=== PATIENT | female | born 1995 | race Caucasian/White ===

== ENCOUNTER 2023-07-01 07:05 | Inpatient (IN) ==
[2023-07-01] MEDS ORDERED: OXYTOCIN 30 UNITS/500 ML BAG IV PRN ×3 (07:25→12:30)
[2023-07-01] MEDS ORDERED: LACTATED RINGER'S 1,000 ML IV PRN (07:25)
[2023-07-01] MEDS ORDERED: LIDOCAINE 1% LOCAL 20 ML VIAL INFIL PRN (07:25)
[2023-07-01] MEDS ORDERED: SODIUM CHLORIDE 0.9% PF INJ 10 ML VIAL ONE (07:32)
[2023-07-01] MEDS ORDERED: ePHEDrine sulfate 50 MG/ML AMP ONE (07:32)
[2023-07-01] MEDS ORDERED: BUPIVACAINE 0.25% PF 30 ML VIAL ONE (07:32)
[2023-07-01] MEDS ORDERED: fentaNYL citrate PF 100 MCG/2 ML VIAL ONE (07:32)
[2023-07-01] MEDS ORDERED: LIDOCAINE 2%/EPINEPHRINE 1:200,000 20 ML PF ONE (07:33)
[2023-07-01] MEDS ORDERED: fentaNYL 2MCG/ML ROPIVACAINE 1.25MG/ML 100 ML BAG EPI ONE (07:33)
[2023-07-01] MEDS ORDERED: LIDOCAINE 2% MPF LOCAL 5 ML VIAL EPI PRN (07:44)
[2023-07-01] MEDS ORDERED: NALBUPHINE HCL INJ 10 MG/ML AMP IV PRN (07:44)
[2023-07-01] MEDS ORDERED: NALOXONE HCL 1 MG in SODIUM CHLORIDE 0.9% 1000ML 1,000 ML IV PRN (07:44)
[2023-07-01] MEDS ORDERED: ePHEDrine sulfate 50 MG/ML AMP IV PRN (07:44)
[2023-07-01] MEDS ORDERED: LIDOCAINE 2%/EPINEPHRINE 1:200,000 20 ML PF EPI STA (07:44)
[2023-07-01] MEDS ORDERED: BUPIVACAINE 0.25% PF 30 ML VIAL EPI PRN (07:44)
[2023-07-01] MEDS ORDERED: fentaNYL 2MCG/ML ROPIVACAINE 1.25MG/ML 100 ML BAG EPI PRN (07:44)
[2023-07-01] MEDS ORDERED: SODIUM CHLORIDE 0.9% PF INJ 10 ML VIAL EPI PRN (07:44)
[2023-07-01] MEDS ORDERED: BUPIVACAINE 0.25% PF 30 ML VIAL EPI STA (07:44)
[2023-07-01] MEDS ORDERED: fentaNYL citrate PF 100 MCG/2 ML VIAL EPI PRN (07:44)
[2023-07-01] MEDS ORDERED: ROPIVACAINE 0.5% PF 5 MG/ML 20 ML VIAL EPI PRN (07:44)
[2023-07-01] MEDS ORDERED: fentaNYL citrate PF 100 MCG/2 ML VIAL EPI STA (07:44)
[2023-07-01] MEDS ORDERED: diphenhydrAMINE 50 MG/ML VIAL IV PRN (07:44)
[2023-07-01] MEDS ORDERED: SODIUM CHLORIDE 0.9% PF INJ 10 ML VIAL EPI STA (07:44)
[2023-07-01] MEDS ORDERED: NALOXONE HCL 0.4 MG/1 ML VIAL/CARP IV PRN (07:44)
--- NOTE | 2023-07-01 07:45 | Anesthesiology Consultation ---
Date of Service July 01, 2023 Assessment & Plan (1) Encounter for pre-operative examination: Chart Review Chart Review: Patient NOT seen in Pre Admission Testing and Acceptable Risk for Labor Epidural Consults Requested none History Allergies Allergy/AdvReac Type Severity Reaction Status Date / Time No Known Allergies Allergy Verified 06/29/23 10:32 Medications Home Medications Medication Instructions Recorded Confirmed Last Taken prenat.vits,barrett,xeb-[id number] 1 tab PO DAILY 11/09/22 06/29/23 Unknown albuterol sulfate 90 mcg/actuation 2 puff inhalation Q6H PRN 12/05/22 06/29/23 Unknown aerosol inhaler shortness of breath or wheezing #8.5 grams Past Medical History Medical History (Updated 07/01/23 @ 07:45 by Quinn Simms MD) Encounter for pre-operative examination healthy Past Family History Family History Mother Hypertension Aunt Ovarian cancer Uncle Colorectal cancer Past Surgical History Surgical History H/O wisdom tooth extraction S/P tonsillectomy and adenoidectomy Social History Smoking Status: Never smoker Do You Dip or Chew Tobacco: No Physical Exam Vital Signs Last Vital Signs Temp 36.4 C L 07/01/23 07:11 Pulse 88 07/01/23 08:12 Resp 22 07/01/23 07:11 BP 135/81 07/01/23 08:14 Pulse Ox 99 07/01/23 08:11 Testing Laboratory Results 07/01/23 07:32
[2023-07-01 08:02] LABS: Hematocrit (blood only) 40.8 % (37.0-47.0); Hemoglobin 14.5 g/dl (12.0-16.0); Mean Corpuscular Hemoglobin 32.4 pg (25.0-34.0); Mean Corpuscular Hgb Conc 35.5 g/dL (32.0-36.0); Mean Corpuscular Volume 91.1 fL (80.0-100.0); Mean Platelet Volume 9.3 fL (9.4-12.4); Platelet Count 267 K/uL (130-400); RDW Coefficient of Variation 12.2 % (11.5-14.5); RDW Standard Deviation 40.3 fL (36.4-46.3); Red Blood Count 4.48 M/uL (4.20-5.40); White Blood Count 16.61 K/ul (4.8-10.8)
--- NOTE | 2023-07-01 08:26 | History & Physical Report ---
Date of Service July 01, 2023 Assessment & Plan (1) : Plan: Will admit patient to L&D Regular contractions; will monitor and manage expectantly VSS FHT cat 1 GBS negative Epidural prn Admission and Anticipated Discharge Date Admission Date: July 01, 2023 History of Present Illness Chief Complaint: Labor Primary Care Provider: Shahrzad Crenshaw DO Gabrielle is a 28 y/o female G1 currently at IUP 40 1/7 WGA with an ONE[place] 01/2023 as determined by US who was scheduled for IOL today but started having contractions at 1:30am this morning that were q10min but then increased in intensity and frequency. No complications associated to her current . Refers regular contractions Refers adequate movement Denies fluid loss Denies bloody show External FHT and external uterine monitors used * Category 1 tracing * Moderate FHT variability. Had regular appointments since the first trimester. Allergies Allergy/AdvReac Type Severity Reaction Status Date / Time No Known Allergies Allergy Verified 06/29/23 10:32 Home Medications Medication Instructions Recorded Confirmed Type prenat.vits,barrett,[id number] 1 tab PO DAILY 11/09/22 06/29/23 History albuterol sulfate 90 mcg/actuation 2 puff inhalation Q6H PRN 12/05/22 06/29/23 Rx aerosol inhaler shortness of breath or wheezing #8.5 grams Patient History Medical History (Updated 07/01/23 @ 07:45 by Quinn Simms MD) Encounter for pre-operative examination Surgical History H/O wisdom tooth extraction S/P tonsillectomy and adenoidectomy Family History Mother Hypertension Aunt Ovarian cancer Uncle Colorectal cancer Social History (Updated 11/26/22 @ 13:07 by Mami Lim MA) Smoking Status: Never smoker Do You Dip or Chew Tobacco: No; Preferred Language: Lithuanian marital status: marital status details: Gio (26) [phone] Current Living Situation: Spouse Current Living Situation Comment: lives with spouse, 1 dog. current occupational status: employed current occupation: Teacher. How many Children do You have: 0 Do you think of yourself as: straight/heterosexual Gender Identity: Female OB History G1 [employer] History Menarche was at 14 y/o LMP: 09/22/2022 * Regular: Every 28-30 days * Duration: 5 days * Flow: regular Contraception use: no History of STDs: no Last Pap Smear: 04/2021 that was normal as per patient Review of Systems no fever, no chills and no sweats Denies changes in vision. Denies shortness of breath or respiratory difficulty. no chest pain and no palpitations no dysuria no headache(s) Physical Exam Physical Exam: General: Alert, oriented x3. Afebrile. No acute distress. Eyes: Pupils equal and reactive to light bilaterally. Extraocular movement intact bilaterally. Cardiac: Regular rate and rhythm, no murmurs/rubs/gallops. Respiratory: Clear to auscultation bilaterally a/p, no wheezes/rales/rhonchi. No increased work of breathing. Symmetrical chest rise. No respiratory distress. Abdomen: Gravid; FHR baseline 140-145; Position: Cephalic Pelvic: Dilation _cm; Effacement _; Station _ per Dr. Rosa Lower Extremities: No lower extremity edema or swelling. No deep calf pain. Ravindra's negative bilaterally Genitourinary: OB Exam Abdomen: + vertex and + regular contractions Manual OB Exam: + cervical dilation 7 cm, + cervical effacement 100% and + station -1 OB Exam Monitor Tracing: + external FHT monitor used, + external uterine monitor used, + category I and + normal FHT variability Results & Data Vital Signs (Past 12 Hours) Vital Signs Temp Pulse Resp BP Pulse Ox 07/01/23 08:16 75 123/65 07/01/23 08:14 135/81 07/01/23 08:11 86 99 07/01/23 08:12 88 132/66 07/01/23 08:06 83 99 07/01/23 08:01 82 98 07/01/23 07:56 84 100 07/01/23 07:51 83 100 07/01/23 07:46 81 100 07/01/23 07:11 36.4 C L 81 22 126/78 Laboratory Results OB Labs: Blood Type AB Positive 11/18/22 Antibody Screen NEGATIVE 11/18/22 Hemoglobin 12.3 g/dl (12.0-16.0) 04/08/23 Hematocrit 34.9 % (37.0-47.0) L 04/08/23 Mean Corpuscular Volume 89.4 fL (80.0-100.0) 11/18/22 Platelet Count 335 K/uL (130-400) 11/18/22 Rubella IgG Antibody Immune (Immune) 11/18/22 Rapid Plasma Reagin Nonreactive (Nonreactive) 11/18/22 Hepatitis B Surface Antigen. NON-REACTIVE (NON-REACTIVE) 11/18/22 Hepatitis C Antibody (EIA) NON-REACTIVE (NON-REACTIVE) 11/18/22 HIV (1&2) Ag and Ab Confirmation NON-REACTIVE (NON-REACTIVE)B 11/18/22 Glucose 1 Hour 50 gm Load 113 mg/dl (70-130) 04/08/23 OB Optional Labs: Chlamydia trachomatis RNA Not Detected (NotDetected) 11/18/22 Neisseria gonorrhoeae RNA Not Detected (NotDetected) 11/18/22 Labs Reviewed: declined genetics, horizon, afp GBS negative Code Status & VTE Plan VTE Prophylaxis Plan VTE Prophylaxis will be ordered: No Supervising Physician Co-Signing Physician Notes Resident Physician Supervision Note: I interviewed and examined the patient. Discussed with Dr. Blackburn and agree with findings and plan as documented in the note. Any exceptions or clarifications are listed here: [None] Documented By: Jeanette Roas MD, FACOG Resident Activity Tracking Resident Involvement: Resident Care Provided Care Provided: OB Delivery
[2023-07-01] MEDS ORDERED: BENZOCAINE 20% SPRY 85 APPLN/85 GM CAN EXT PRN (12:30)
[2023-07-01] MEDS ORDERED: bisacodyL 10 MG SUPP PR PRN (12:30)
[2023-07-01] MEDS ORDERED: DIPHTHERIA/TETANUS/PERTUSSIS Vaccine (Tdap, Age 7+yrs) 0.5mL SYR/VL IM ONE (12:30)
[2023-07-01] MEDS ORDERED: HYDROCORTISONE ACETATE 25 MG SUPP PR PRN (12:30)
[2023-07-01] MEDS ORDERED: ACETAMINOPHEN 325 MG TAB PO PRN (12:30)
--- NOTE | 2023-07-01 14:43 | Anesthesia Procedure Note ---
Date of Service July 01, 2023 Anesthesia Post Epidural Note Vital Signs Vital Signs: Temp Pulse Resp BP Pulse Ox 36.4 C L 77 22 101/64 95 07/01/23 09:01 07/01/23 14:33 07/01/23 09:01 07/01/23 14:33 07/01/23 12:06 Pain Intensity Abdomen: Pain Intensity: 0 Notes Mental Status: alert / awake / arousable and participated in evaluation Patient Amnestic to Procedure: No Nausea / Vomiting: adequately controlled Pain: adequately controlled Airway Patency, RR, SpO2: stable & adequate BP & HR: stable & adequate Hydration State: stable & adequate Neuraxial Anesthesia: was administered and sensory block is resolving Anesthetic Complications: no major complications apparent and Pt Satisfied with anesthetic care Epidural: Removed without complications and With tip intact
--- NOTE | 2023-07-01 14:49 | Delivery Summary ---
Vaginal Delivery Summary Date of Service July 01, 2023 Vaginal Delivery Summary and 1st Degree LAC Patient is a 28-year-old 1 P0 female EDC of 06/29/2023 who presented in active labor at 40-2/7 weeks. She received effective epidural analgesia. She progressed to full dilation with the urge to push. Membranes were ruptured for clear fluid. She pushed effectively over intact perineum for delivery of a viable female . After the head was delivered the rest the was delivered without maternal effort. The was vigorous and moving all 4 limbs and was placed on mother's abdomen for further attention and drying. After 1 minute, the cord was clamped and cut. The placenta was expressed intact with a three-vessel cord after obtaining cord blood. bleeding was controlled with dilute Pitocin and fundal massage. First-degree bilateral labial lacerations and a first-degree perineal laceration were repaired with 3-0 chromic in the usual fashion. Estimated blood loss was 300 cc. Mother and were doing well after delivery. [facility] [place] Vaginal Delivery Charge Delivery Type Details: and 1st Degree LAC
[2023-07-01] MEDS: DOCUSATE SODIUM 100 MG CAP PO SCH (20:28)
[2023-07-01] MEDS: IBUPROFEN 600 MG TAB PO PRN (20:29)
[2023-07-02 06:19] LABS: Hemoglobin 12.7 g/dl (12.0-16.0)
--- NOTE | 2023-07-02 06:43 | Obstetrical Progress Note ---
Date of Service <Viridiana Blackburn MD - Last Filed: 07/02/23 07:50> July 02, 2023 Assessment & Plan <Viridiana Blackburn MD - Last Filed: 07/02/23 07:50> (1) Spontaneous vaginal delivery: Patient with the above mentioned history and findings was evaluated at bedside and found clinically and hemodynamically stable, afebrile, awake, alert, oriented x3, and in no acute distress. Overall she seems stable and is fit to go home today. Discharge instructions were discussed. Her pain will be managed with Tylenol, Advil, Ibuprofen, or Motrin PRN. She is to call to schedule and appointment with her OB for 6 weeks after discharge for her follow up evaluation. All questions were answered. <Jeanette Rosa MD, FACOG - Last Filed: 07/02/23 08:48> (1) Spontaneous vaginal delivery: Subjective <Viridiana Blackburn MD - Last Filed: 07/02/23 07:50> Gabrielle is a 28 y/o female who is now PPD # 1 following at 40 1/7 weeks. Reports feeling well overall this morning. She refers mild abdominal cramping & 1/10 pain well managed on analgesics. Voiding spontaneously. Tolerating meals overnight and able to ambulate some. She has passed gas but has not yet had a bowel movement. Some persistent lochia with some improvement this morning. . Her blood type is AB positive and today's Hb was 12.7. She is GBS negative and rubella immune. Constitutional: no fever, no chills or no sweats Denies shortness of breath or difficulty breathing Cardiovascular: no chest pain or no palpitations Breast: no breast pain Genitourinary (female): no dysuria Neurologic: no headache(s) Denies changes in vision Physical Exam <Viridiana Blackburn MD - Last Filed: 07/02/23 07:50> General: Alert. Oriented to person, time, and place. Afebrile. No acute distress. Eyes: pupils equal and reactive to light bilaterally, extraocular movements intact. Cardiac: Regular rate and rhythm, no murmurs/rubs/gallops. Respiratory: Clear to auscultation bilaterally a/p, no wheezes/rales/rhonchi. No increased work of breathing. Symmetrical chest rise. No respiratory distress. Abdomen: Soft, nontender, nondistended. Bowel sounds present. Uterus: Uterine fundus firm, non-tender, and palpable below umbilicus. Lower Extremities: No lower extremity edema or swelling. No deep calf pain. Ravindra's negative bilaterally. Psych: Euthymic affect. Mood and affect congruence. Regular speech rate and content. Results & Data <Viridiana Blackburn MD - Last Filed: 07/02/23 07:50> Vital Signs (Past 12 Hours) Vital Signs Temp Pulse Resp BP Pulse Ox O2 Del Method 07/02/23 03:35 36.6 C 70 18 106/66 97 Room Air 07/01/23 23:25 36.6 C 73 18 122/75 97 Room Air 07/01/23 19:55 36.9 C 74 18 118/73 97 Room Air <Jeanette Rosa MD, FACOG - Last Filed: 07/02/23 08:48> Co-Signing Physician Notes Resident Physician Supervision Note: I interviewed and examined the patient. Discussed with Dr. Blacbkurn and agree with findings and plan as documented in the note. Any exceptions or clarifications are listed here: [None] Documented By: Jeanette Rosa MD, FACOG Resident Activity Tracking <Viridiana Blackburn MD - Last Filed: 07/02/23 07:50> Resident Involvement: Resident Care Provided Care Provided: OB Delivery
[2023-07-02] MEDS: DOCUSATE SODIUM 100 MG CAP PO SCH ×2 (08:29→21:21)
[2023-07-02] MEDS: IBUPROFEN 600 MG TAB PO PRN ×2 (08:29→21:21)
[2023-07-02] MEDS: PRENATAL VITAMIN 1 TAB PO SCH (08:29)
[2023-07-02] MEDS ORDERED: bisacodyL 5 MG TABEC PO SCH (20:00)
--- NOTE | 2023-07-03 07:39 | Obstetrical Progress Note ---
Date of Service July 03, 2023 Assessment & Plan (1) Spontaneous vaginal delivery: day #2 patient meets discharge criteria no extremity pain no depression minimal bleeding will discharge home Subjective Ambulation: ambulating normally Voiding: no voiding problems Passing Gas:: Yes Diet Tolerance:: regular diet Lochia:: Small Feeding Type:: breast feeding Results & Data Vital Signs (Past 12 Hours) Vital Signs Temp Pulse Resp BP Pulse Ox O2 Del Method 07/03/23 00:16 97.9 F 73 18 122/74 97 Room Air 07/02/23 21:20 97.7 F 72 18 122/77 97 Room Air
[2023-07-03] MEDS: IBUPROFEN 600 MG TAB PO PRN (09:52)
[2023-07-03] MEDS: PRENATAL VITAMIN 1 TAB PO SCH (09:52)
[2023-07-03] MEDS: DOCUSATE SODIUM 100 MG CAP PO SCH (09:52)
== END 2023-07-03 14:30 | disposition home or self-care (01) | DRG 807 ==
LOC: 4S1 07:05 → 4E2 16:27